=== PATIENT | male | born 1990 ===

== ENCOUNTER 2021-08-30 15:08 | Emergency (ER) | payer SELFPAY ==
[2021-08-30 15:30] VITALS: BP 137/77
--- NOTE | 2021-08-30 18:42 | Emergency Department Report ---
ED General Adult HPI - General Chief complaint: Skin/Abscess/Foreign Body Stated complaint: POSSIBLE INFECTED BURNETT/FACIAL Time Seen by Provider: 08/30/21 16:47 Source: patient Mode of arrival: Ambulatory Limitations: No Limitations - History of Present Illness Initial comments: Patient complains of swelling and pain beneath the chin x1 week. Patient states his symptoms started after he got a haircut believes he has an ingrown hair. He denies any fever/chills/sweats or dysphagia. NKDA per patient and no past medical history per patient. Patient rates his pain as a 5/10 in severity. He admits to mild purulent drainage - Related Data Previous Rx's Medication Instructions Recorded Last Taken Type Clindamycin [Clindamycin CAP] 300 mg PO Q6H 10 Days #40 cap 08/30/21 Unknown Rx Ibuprofen [Motrin 800 MG tab] 800 mg PO Q8HR PRN #20 tablet 08/30/21 Unknown Rx Mupirocin [Bactroban 2% OINT] 1 applic TP TID 10 Days #1 tube 08/30/21 Unknown Rx traMADoL [Ultram 50 MG tab] 50 mg PO Q6HR PRN #12 tablet 08/30/21 Unknown Rx Allergies Allergy/AdvReac Type Severity Reaction Status Date / Time No Known Allergies Allergy Unverified 08/30/21 15:27 ED Review of Systems ROS: Stated complaint: POSSIBLE INFECTED BURNETT/FACIAL Other details as noted in HPI Constitutional: denies: chills, fever, malaise Skin: denies: change in color Neurological: denies: headache ED Past Medical Hx - Medications Home Medications: Home Medications Medication Instructions Recorded Confirmed Last Taken Type Clindamycin [Clindamycin CAP] 300 mg PO Q6H 10 Days #40 cap 08/30/21 Unknown Rx Ibuprofen [Motrin 800 MG tab] 800 mg PO Q8HR PRN #20 tablet 08/30/21 Unknown Rx Mupirocin [Bactroban 2% OINT] 1 applic TP TID 10 Days #1 tube 08/30/21 Unknown Rx traMADoL [Ultram 50 MG tab] 50 mg PO Q6HR PRN #12 tablet 08/30/21 Unknown Rx ED Physical Exam - General Limitations: No Limitations General appearance: alert, in no apparent distress - Head Head exam: Present: atraumatic, normocephalic - Eye Eye exam: Present: normal appearance. Absent: scleral icterus - Neck Neck exam: Present: full ROM, other (Abscess noted to submandibular area with small scabbed area; no surrounding cellulitic changes noted). Absent: lymphadenopathy - Respiratory Respiratory exam: Absent: respiratory distress - Cardiovascular Cardiovascular Exam: Present: regular rate - Neurological Exam Neurological exam: Present: alert, oriented X3 - Psychiatric Psychiatric exam: Present: normal affect, normal mood - Skin Skin exam: Present: warm, dry, intact, normal color. Absent: rash ED Course Vital Signs 08/30/21 15:29 Temperature 98.3 F Pulse Rate 80 Respiratory 16 Rate Blood Pressure 137/77 O2 Sat by Pulse 99 Oximetry - I & D Face Type of Procedure: Simple Site: Submandibular area Blade Size: 11 I & D Procedure: betadine prep, sterile drapes applied, sterile dressing applied Progress: 2 cc of lidocaine 1% used anesthetize area. Mild purulent drainage obtained from wound. Wound culture sent. Minimal bleeding occurred. Patient tolerated procedure well without any immediate complications. Sterile dressing applied ED Medical Decision Making - Medical Decision Making Patient complains of swelling and pain beneath the chin x1 week. Patient states his symptoms started after he got a haircut believes he has an ingrown hair. He denies any fever/chills/sweats or dysphagia. NKDA per patient and no past medical history per patient. Patient rates his pain as a 5/10 in severity. He admits to mild purulent drainage Incision and drainage performed. Patient tolerated procedure well without any immediate complications. Discussed wound care and signs and symptoms that should prompt immediate return to the ED with patient who verbalizes understanding. He is to return to the ED in 2 days for wound recheck or follow- up with his primary care doctor Critical care attestation.: If time is entered above; I have spent that time in minutes in the direct care of this critically ill patient, excluding procedure time. ED Disposition Clinical Impression: Abscess Disposition: 01 HOME / SELF CARE / HOMELESS Is pt being admited?: No Condition: Stable Instructions: Skin Abscess, [id number], Incision and Drainage, Care After Additional Instructions: You may return to the ED in 2 days for wound recheck Prescriptions: Mupirocin [Bactroban 2% OINT] 1 applic TP TID 10 Days #1 tube Clindamycin [Clindamycin CAP] 300 mg PO Q6H 10 Days #40 cap Ibuprofen [Motrin 800 MG tab] 800 mg PO Q8HR PRN #20 tablet PRN Reason: Pain, Moderate (4-6) traMADoL [Ultram 50 MG tab] 50 mg PO Q6HR PRN #12 tablet PRN Reason: Pain , Severe (7-10) Referrals: PRIMARY CARE,MD [Primary Care Provider] - 3-5 Days Forms: Work/School Release Form(ED)
== END 2021-08-30 19:01 | disposition home or self-care (01) ==
LOC: ED 15:08
DX: L02.01 Cutaneous abscess of face (principal)
CPT/HCPCS: 87076; 87116; 87186; 99283